=== PATIENT | male | born 1960 | race Caucasian/White ===

== ENCOUNTER 2023-01-17 11:24 | Emergency (ER) | payer OTHER, SELFPAY ==
[2023-01-17] VITALS (10 sets, daily range): BP systolic 119–172; BP diastolic 72–114; PULSE 59–80; RESP 15–26; TEMP 36.4; O2SAT 93–98; BMI 31.0
--- NOTE | 2023-01-17 11:33 | DI.RAD.S_ITS ---
PROCEDURE: XR CHEST 1V INDICATIONS: chest pain TECHNIQUE: One view of the chest was acquired. COMPARISON: [facility], , CHEST 2VW, 05/10/2012, 17:24. FINDINGS: Surgical changes and devices: None. Lungs and pleura: Lungs are clear. No pleural effusions or pneumothorax. Mediastinum: Mediastinal contours appear normal. Heart size is normal. Bones and chest wall: No suspicious bony lesions. Overlying soft tissues appear unremarkable. IMPRESSION: No acute cardiopulmonary disease. Dictated by: Gary Ahmadi M.D. on 01/17/2023 at 12:31 Approved by: Gary Ahmadi M.D. on 01/17/2023 at 12:31
--- NOTE | 2023-01-17 11:37 | ED_ITS ---
HPI - Chest Pain <SALLY Concepcion - Last Filed: 01/17/23 14:42> General Chief Complaint: Chest Pain Stated Complaint: chest pain Time Seen by Provider: 01/17/23 11:33 Source: patient Mode of arrival: Ambulatory Limitations: no limitations History of Present Illness HPI narrative: This is a 62-year-old gentleman with history of hypertension and hyperlipidemia which is controlled who presents to the emergency department today for panic attack and anxiety with chest pain associated with nausea that patient states gradually started this morning and when he became nauseous he came in with concern for a cardiac problem. He denies history of PA, arrhythmia, denies other significant medical history. 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 Patient denies any radiation of his substernal and epigastric pain. Related Data Previous Rx's Medication Instructions Recorded hydroxyzine HCl 10 mg tablet 10 mg PO TID PRN anxiety #30 tabs 01/17/23 Allergies Allergy/AdvReac Type Severity Reaction Status Date / Time No Known Drug Allergies Allergy Verified 01/17/23 11:28 Review of Systems <SALLY Concepcion - Last Filed: 01/17/23 14:42> Review of Systems ROS Unobtainable: All systems reviewed & are unremarkable except as noted in HPI and below Patient History <SALLY Concepcion - Last Filed: 01/17/23 14:42> Social History Smoking Status: Former smoker Smoking Status: Former smoker Substance Use Type: does not use Exam <SALLY Concepcion - Last Filed: 01/17/23 14:42> Narrative Exam Narrative: Reviewed vitals signs and nursing notes. General: Pleasant, resting in bed, tremulous and anxious, well groomed, afebrile HEENT: symmetrical facial expressions, moist mucous membranes, neck is supple CV: regular rate and rhythm, warm extremities Respiratory: normal work of breathing, without tachypnea or hypoxia. GI: abdomen soft, nondistended, without CVA tenderness bilaterally. MSK: moves all extremities, no weakness, normal tone, ambulatory without deficit Skin: brisk capillary refill, without rash or wound Neuro: clear speech and normal cognition, A&O x3, GCS 15, no focal motor or sensation deficits Initial Vital Signs Initial Vital Signs: Vital Signs Temperature 97.5 F L 01/17/23 11:28 Pulse Rate 80 01/17/23 11:28 Respiratory Rate 24 01/17/23 11:28 Blood Pressure 159/80 H 01/17/23 11:28 Pulse Oximetry 97 01/17/23 11:28 Oxygen Delivery Method Room Air 01/17/23 11:28 <Ambrocio Hawk MD - Last Filed: 02/12/23 21:38> Initial Vital Signs Initial Vital Signs: Vital Signs Temperature 97.5 F L 01/17/23 11:28 Pulse Rate 80 01/17/23 11:28 Respiratory Rate 24 01/17/23 11:28 Blood Pressure 159/80 H 01/17/23 11:28 Pulse Oximetry 97 01/17/23 11:28 Oxygen Delivery Method Room Air 01/17/23 11:28 Scores <SALLY Concepcion - Last Filed: 01/17/23 14:42> HEART Score Heart Score history: Slightly Suspicious Heart Score EKG: Normal Heart Score Age: 45-64 years old Heart Score risk factors: 1-2 risk factors Heart Score troponin: < or = to normal limit Heart Score Total: 2 <Ambrocio Hawk MD - Last Filed: 02/12/23 21:38> HEART Score Heart Score Total: 2 Course <SALLY Concepcion - Last Filed: 01/17/23 14:42> Orders Ordered: Discontinued Medications Aspirin (Aspirin 81 Mg Chew Tab) 324 mg PO NOW ONE Stop: 01/17/23 11:34 Last Admin: 01/17/23 12:23 Dose: Not Given Documented By: OPAL Lorazepam (Lorazepam 0.5 Mg Tablet) 0.5 mg PO NOW ONE Stop: 01/17/23 11:36 Last Admin: 01/17/23 12:08 Dose: 0.5 mg Documented By: OPAL Vital Signs Vital signs: Vital Signs - 8 hr 01/17/23 11:28 01/17/23 11:35 01/17/23 11:37 Temperature 97.5 F L Pulse Rate 80 66 Respiratory Rate 24 Blood Pressure 159/80 H 172/99 H Pulse Oximetry 97 98 Oxygen Delivery Method Room Air 01/17/23 11:37 01/17/23 12:00 01/17/23 12:01 Temperature Pulse Rate 74 69 Respiratory Rate 26 H 23 Blood Pressure 161/114 H Pulse Oximetry 98 96 Oxygen Delivery Method 01/17/23 12:01 01/17/23 12:30 01/17/23 12:30 Temperature Pulse Rate 76 71 Respiratory Rate 21 22 Blood Pressure 147/94 H Pulse Oximetry 93 95 Oxygen Delivery Method 01/17/23 13:00 01/17/23 13:00 01/17/23 13:30 Temperature Pulse Rate 68 59 L Respiratory Rate 18 18 Blood Pressure 171/88 H Pulse Oximetry 96 96 Oxygen Delivery Method 01/17/23 13:31 01/17/23 13:31 01/17/23 14:00 Temperature Pulse Rate 59 L Respiratory Rate 20 Blood Pressure 119/72 160/90 H Pulse Oximetry 97 Oxygen Delivery Method 01/17/23 14:00 Temperature Pulse Rate 65 Respiratory Rate 15 Blood Pressure Pulse Oximetry 97 Oxygen Delivery Method <Ambrocio Hawk MD - Last Filed: 02/12/23 21:38> Orders Ordered: Discontinued Medications Aspirin (Aspirin 81 Mg Chew Tab) 324 mg PO NOW ONE Stop: 01/17/23 11:34 Last Admin: 01/17/23 12:23 Dose: Not Given Documented By: OPAL Lorazepam (Lorazepam 0.5 Mg Tablet) 0.5 mg PO NOW ONE Stop: 01/17/23 11:36 Last Admin: 01/17/23 12:08 Dose: 0.5 mg Documented By: MPO Vital Signs Vital signs: Vital Signs - 8 hr 01/17/23 11:28 01/17/23 11:35 01/17/23 11:37 Temperature 97.5 F L Pulse Rate 80 66 Respiratory Rate 24 Blood Pressure 159/80 H 172/99 H Pulse Oximetry 97 98 Oxygen Delivery Method Room Air 01/17/23 11:37 01/17/23 12:00 01/17/23 12:01 Temperature Pulse Rate 74 69 Respiratory Rate 26 H 23 Blood Pressure 161/114 H Pulse Oximetry 98 96 Oxygen Delivery Method 01/17/23 12:01 01/17/23 12:30 01/17/23 12:30 Temperature Pulse Rate 76 71 Respiratory Rate 21 22 Blood Pressure 147/94 H Pulse Oximetry 93 95 Oxygen Delivery Method 01/17/23 13:00 01/17/23 13:00 01/17/23 13:30 Temperature Pulse Rate 68 59 L Respiratory Rate 18 18 Blood Pressure 171/88 H Pulse Oximetry 96 96 Oxygen Delivery Method 01/17/23 13:31 01/17/23 13:31 01/17/23 14:00 Temperature Pulse Rate 59 L Respiratory Rate 20 Blood Pressure 119/72 160/90 H Pulse Oximetry 97 Oxygen Delivery Method 01/17/23 14:00 Temperature Pulse Rate 65 Respiratory Rate 15 Blood Pressure Pulse Oximetry 97 Oxygen Delivery Method MDM - Chest Pain <Ifeoma Ochoa, [facility] - Last Filed: 01/17/23 14:42> Lab Data 01/17/23 11:55 01/17/23 13:02 Labs: Lab Results 01/17/23 01/17/23 Range/Units 11:55 13:02 WBC 8.5 (4.5-11.0) X10^3/uL RBC 4.87 (4.5-5.9) X10^6/uL Hgb 14.7 (13.5-17.5) g/dL Hct 42.0 (41-53) % MCV 86.2 (80-100) fL MCH 30.2 (26-34) PG MCHC 35.1 (30-36) % RDW 12.7 (11.6-14.8) % Plt Count 188 (150-400) X10^3/uL Neut % (Auto) 47.3 L (50-75) % Lymph % (Auto) 39.5 (25-40) % Alexander % (Auto) 9.1 (3-14) % Eos % (Auto) 2.7 (2-4) % Baso % (Auto) 1.4 (0-2) % Neut # (Auto) 4000 (5844-1478) /uL Lymph # (Auto) 3400 (0010-0785) /uL Alexander # (Auto) 800 (0-900) /uL Eos # (Auto) 200 (0-450) /uL Baso # (Auto) 100 (0-100) /uL Sodium 139 (137-145) mmol/L Potassium 4.2 (3.4-5.1) mmol/L Chloride 105 (98-107) mmol/L Carbon Dioxide 25 (22-32) mmol/L BUN 19 (9-20) mg/dL Creatinine 0.85 (0.66-1.25) mg/dL Estimated GFR > 60 (>60) mL/min BUN/Creatinine Ratio 22.4 H (6-22) Glucose 104 (80-110) mg/dL Calcium 8.8 (8.4-10.2) mg/dL Magnesium 2.1 (1.6-2.3) mg/dL Total Bilirubin 0.4 (0.2-1.3) mg/dL AST 31 (17-59) IU/L ALT 28 (<50) IU/L Alkaline Phosphatase 46 (38-126) U/L Total Creatine Kinase 113 (55-170) U/L Troponin I 0.017 (0.01-0.034) ng/mL Total Protein 8.0 (6.3-8.2) g/dL Albumin 4.7 (3.5-5.0) g/dL Globulin 3.3 (1.7-4.1) g/dL Albumin/Globulin Ratio 1.4 (1.0-2.8) Lipase 91 (23-300) U/L Urine Dip Bedside Urine Glucose Negative Bedside Urine Bilirubin - Negative Bedside Urine Ketone - Negative Urine Specific [place] 1.02 Bedside Urine Occult Blood - Negative Bedside Urine pH 5.5 Bedside Urine Protein - Negative Bedside Urine Urobilinogen - Negative Bedside Urine Nitrite - Negative Bedside Urine Leukocytes - Negative Esterase Imaging Data Chest x-ray: Radiologist's Impression: PROCEDURE:? XR CHEST 1V ? INDICATIONS:? chest pain ? TECHNIQUE:? One view of the chest was acquired.? ? COMPARISON:? [facility], , CHEST 2VW, 05/10/2012, 17:24. ? FINDINGS:? ? Surgical changes and devices:? None.? ? Lungs and pleura:? Lungs are clear.? No pleural effusions or pneumothorax.? ? Mediastinum:? Mediastinal contours appear normal.? Heart size is normal.? ? Bones and chest wall:? No suspicious bony lesions.? Overlying soft tissues appear unremarkable.? ? IMPRESSION:? No acute cardiopulmonary disease. ? ? Dictated by: Gary Ahmadi M.D. on 01/17/2023 at 12:31 ? ? Approved by: Gary Ahmadi M.D. on 01/17/2023 at 12:31 ? ECG Data Interpretation: EKG independently reviewed by myself at 1141 reveals normal sinus rhythm at 64 bpm with regular axis and intervals. No STEMI, ST segment changes, arrhythmia, or acute ischemic changes. MDM Narrative Medical decision making narrative: Chief Complaint: Chest pain, anxiety Multiple etiologies for patient's complaint considered including, but not limited to: ACS, panic attack, mood disorder, depression/anxiety, aortic dissection, AAA I have independently reviewed the patient's vital signs and nursing notes as well as prior records if available. Plan: Chest pain workup, patient's pain is reproducible with deep inspiration, unlikely ACS, he was having symptoms of anxiety and panic attack which started to improve after lorazepam was given. Patient's lab work is reassuring, as well as the EKG which is normal sinus rhythm without ST changes or arrhythmia. CBC is unremarkable, patient's chemistries also unremarkable, troponin of 0.017 and a normal lipase. Course of Care: Heart Score : 2 History: [ 0] EKG: [ 0] Age: [1 ] Risk Factors: [ 1] Troponin: [ 0] Score 0-3: 0.9-1.7% MACE over next 30 days? Discharge Home Social work consultation was placed for resources as patient does not have a primary care provider listed, is going through an increased amount of stress related to his job, he has good coping mechanisms although he was not able to utilize them today and required an evaluation. Social work can follow-up with him tomorrow and attempt to pair him up with a primary care provider, patient would benefit from an antidepressant as a possibility. He was prescribed hydroxyzine 10 mg TID prn as needed for anxiety in the meantime. He has a low heart score of 2, recommend discharge home and follow-up as appropriate. Social considerations that may affect disposition: none Questions are addressed and there is agreement with the plan and for follow-up. I consulted with the ED attending physician Dr. Hawk as needed for higher level of care considerations and they were available for discussion and recommendations regarding plan of care and diagnostic testing. Patient is appropriate for outpatient management. <Ambrocio Hawk MD - Last Filed: 02/12/23 21:38> Lab Data Labs: Lab Results 01/17/23 01/17/23 Range/Units 11:55 13:02 WBC 8.5 (4.5-11.0) X10^3/uL RBC 4.87 (4.5-5.9) X10^6/uL Hgb 14.7 (13.5-17.5) g/dL Hct 42.0 (41-53) % MCV 86.2 (80-100) fL MCH 30.2 (26-34) PG MCHC 35.1 (30-36) % RDW 12.7 (11.6-14.8) % Plt Count 188 (150-400) X10^3/uL Neut % (Auto) 47.3 L (50-75) % Lymph % (Auto) 39.5 (25-40) % Alexander % (Auto) 9.1 (3-14) % Eos % (Auto) 2.7 (2-4) % Baso % (Auto) 1.4 (0-2) % Neut # (Auto) 4000 (3069-6644) /uL Lymph # (Auto) 3400 (6430-4474) /uL Alexander # (Auto) 800 (0-900) /uL Eos # (Auto) 200 (0-450) /uL Baso # (Auto) 100 (0-100) /uL Sodium 139 (137-145) mmol/L Potassium 4.2 (3.4-5.1) mmol/L Chloride 105 (98-107) mmol/L Carbon Dioxide 25 (22-32) mmol/L BUN 19 (9-20) mg/dL Creatinine 0.85 (0.66-1.25) mg/dL Estimated GFR > 60 (>60) mL/min BUN/Creatinine Ratio 22.4 H (6-22) Glucose 104 (80-110) mg/dL Calcium 8.8 (8.4-10.2) mg/dL Magnesium 2.1 (1.6-2.3) mg/dL Total Bilirubin 0.4 (0.2-1.3) mg/dL AST 31 (17-59) IU/L ALT 28 (<50) IU/L Alkaline Phosphatase 46 (38-126) U/L Total Creatine Kinase 113 (55-170) U/L Troponin I 0.017 (0.01-0.034) ng/mL Total Protein 8.0 (6.3-8.2) g/dL Albumin 4.7 (3.5-5.0) g/dL Globulin 3.3 (1.7-4.1) g/dL Albumin/Globulin Ratio 1.4 (1.0-2.8) Lipase 91 (23-300) U/L Urine Dip Bedside Urine Glucose Negative Bedside Urine Bilirubin - Negative Bedside Urine Ketone - Negative Urine Specific [place] 1.02 Bedside Urine Occult Blood - Negative Bedside Urine pH 5.5 Bedside Urine Protein - Negative Bedside Urine Urobilinogen - Negative Bedside Urine Nitrite - Negative Bedside Urine Leukocytes - Negative Esterase Discharge Plan Departure Patient Disposition: Home Clinical Impression: Chest pain, Panic attack as reaction to stress Instructions: Tips for Reducing Stress in Your Life, Panic Disorder Activity Restrictions/Additional Instructions: *You have been diagnosed with chest pain which does not appear to be cardiac in nature, anxiety and a panic episode which can come out of no where when you are going through a stressful time. Please try and focus on rest, hydration, utilize your coping strategies which were very healthy and good outlet for you. I have his social work referral, she will follow up with you tomorrow and see if there is any resources that may be helpful for you. If you have primary care provider, please call the number listed below to establish care and schedule follow-up. Your workup today although it took a long time, was negative for acute abnormalities. I hope that you feel better soon, if you have similar symptoms in the future or there worse, please do not hesitate to come into the emergency department. I have given you hydroxyzine which is a safe anxiety medication to take as needed, it may cause some drowsiness. Please use this in the meantime if it is helpful. *What to do: *Please continue to take your regular medications as directed. [ x] New medication prescriptions sent to your pharmacy: [[facility] [place]] [ ] New medication written as a paper prescription [ ] No new medications given *Please call and schedule follow up with your primary care provider in 2-3 days, at least for an update. Let them know you were seen in the Emergency Department for the above problem. We will electronically transmit a record of today's note if your PCP or specialist is in our system. *If you do not have a primary care provider please contact [phone] to establish care with one of the [facility] primary care providers. *Return to the Emergency Department for worsening symptoms, inability to keep liquids down, fever greater than 101F, chills, or other concerning symptom. Prescriptions: New hydroxyzine HCl 10 mg tablet 10 mg PO TID PRN (Reason: anxiety) Qty: 30 0RF Referrals: Miscellaneous,Doctor, [Primary Care Provider] - Stand Alone Forms: Patient Portal/API, Work Release Note <Ambrocio Hawk MD - Last Filed: 02/12/23 21:38> [facility] I was immediately available in the department for consultation. This documenta tion has been reviewed and I agree with assessment and plan. Supervised by Ambrocio Hawk MD
[2023-01-17 12:08] LABS: Add Manual Diff / Slide Review NO; Basophils Absolute Auto 100 /uL (0-100); Basophils Percent Auto 1.4 % (0-2); Eosinophils Absolute Auto 200 /uL (0-450); Eosinophils Percent Auto 2.7 % (2-4); Hemoglobin 14.7 g/dL (13.5-17.5); Lymphocytes Absolute Auto 3400 /uL (1100-4500); Lymphocytes Percent Auto 39.5 % (25-40); Mean Corpuscular HGB Conc 35.1 % (30-36); Mean Corpuscular Hemoglobin 30.2 PG (26-34); Mean Corpuscular Volume 86.2 fL (80-100); Monocytes Absolute Auto 800 /uL (0-900); Monocytes Percent Auto 9.1 % (3-14); Neutrophils Absolute Auto 4000 /uL (1500-7000); Neutrophils Percent Auto 47.3 % (50-75); Platelet Count 188 X10^3/uL (150-400); Red Blood Cell Count 4.87 X10^6/uL (4.5-5.9); Red Cell Distribution Width 12.7 % (11.6-14.8); White Blood Cell Count 8.5 X10^3/uL (4.5-11.0)
[2023-01-17] MEDS: LORazepam 0.5 MG TABLET PO (12:08)
--- NOTE | 2023-01-17 12:15 | PC.NURSE ---
Pt states that he has been under significant stress lately and if he is feeling anxious or stressed he will calm himself down by going for a walk or going out into peaceful nature. Pt stated that his sense of impending doom was overwhelming and was accompanied by nausea, numbness/tingling in his extremities and diaphoresis and decided to come to the ED. Pt denies any CP at this time. at bedside.
[2023-01-17 13:38] LABS: Troponin I 0.017 ng/mL (0.01-0.034)
[2023-01-17 13:46] LABS: Alkaline Phosphatase 46 U/L (38-126); Blood Urea Nitrogen 19 mg/dL (9-20)
[2023-01-17 13:56] LABS: Alanine Aminotransferase 28 IU/L (<50); Albumin 4.7 g/dL (3.5-5.0); Albumin Globulin Ratio 1.4 (1.0-2.8); Aspartate Aminotransferase 31 IU/L (17-59); BUN Creatinine Ratio 22.4 (6-22); Bilirubin Total 0.4 mg/dL (0.2-1.3); Calcium 8.8 mg/dL (8.4-10.2); Carbon Dioxide 25 mmol/L (22-32); Chloride 105 mmol/L (98-107); Creatine Kinase 113 U/L (55-170); Estimated Glomerular Filt Rate > 60 mL/min (>60); Globulin 3.3 g/dL (1.7-4.1); Glucose 104 mg/dL (80-110); HEMOLYSIS < 15 (0-50); Lipase 91 U/L (23-300); Magnesium 2.1 mg/dL (1.6-2.3); Potassium 4.2 mmol/L (3.4-5.1); Sodium 139 mmol/L (137-145)
--- NOTE | 2023-01-18 13:20 | CM.SWNOTE ---
ED TELECOMMUNICATIONS SUPPORT follow up note TELECOMMUNICATIONS SUPPORT calls patient for follow up call. Patient endorses he is feeling much better today, patient endorses he plans to have PCP f/u and MH outpatient f/u. SHANITA Malin
== END 2023-01-17 14:30 | disposition home or self-care (01) ==
PROVIDERS: Emergency Medicine; Emergency Provider Nurse Practitioner Critical Care Medicine
DX: R07.1 Chest pain on breathing (principal); F41.0 Panic disorder [episodic paroxysmal anxiety]
CPT/HCPCS: 36415; 71045; 80053; 81003; 82550; 83690; 83735; 84484; 85025; 93005; 99284